=== PATIENT | male | born 1985 | race African-American/Black ===

== ENCOUNTER 2025-07-15 17:40 | Inpatient (IN) | payer MEDICAID, SELFPAY ==
[2025-07-15 19:32] LABS: #Basophils 0.03 10x3/uL (0.0-0.2); #Eosinophils 0.06 10x3/uL (0.0-0.7); #Monocytes 0.65 10x3/uL (0.11-0.59); #Neutrophils 4.28 10x3/uL (1.40-6.50); %Basophils 0.3 % (0.0-1.0); %Eosinophils 0.7 % (0.0-10.0); %Lymphocytes 45.2 % (21.0-51.0); %Monocytes 7.1 % (0.0-10.0); %Neutrophils 46.5 % (42.0-75.0); Hematocrit 40.1 % (42.0-52.0); Hemoglobin 12.7 g/dL (14.0-18.0); Mean Corpuscular Hemoglobin 28.0 pg (27.0-31.0); Mean Corpuscular Volume 88.3 fL (78.0-98.0); Platelet Count 244 10x3/uL (130-400); Red Blood Cell (RBC) Count 4.54 mill/uL (4.70-6.10); White Blood Cell (WBC) Count 9.19 10x3/uL (4.8-10.8)
[2025-07-15 19:51] LABS: ALT (SGPT) 45 U/L (Less than 45); AST (SGOT) 28 U/L (11-34); Albumin 4.2 g/dL (3.1-4.5); Alkaline Phosphatase 81 U/L (40-110); Anion Gap 15 mmol/L (10-20); BUN (Urea Nitrogen) 14 mg/dL (8.9-20.6); Bilirubin, Total 0.2 mg/dL (0.3-1.2); Calc. Creatinine Clearance 0 mL/min (70-130); Calcium 9.4 mg/dL (7.8-10.44); Carbon Dioxide 26 mmol/L (22-29); Chloride 106 mmol/L (98-107); Globulin 3.4 g/dL (2.4-3.5); Glucose 99 mg/dL (70-105); Potassium 3.9 mmol/L (3.5-5.1); Sodium 143 mmol/L (136-145)
[2025-07-15] MEDS ORDERED: Ondansetron PF 4 MG/2 ML Vial IVP PRN (23:46)
[2025-07-16] MEDS: Acetaminophen 325 MG TAB PO PRN (01:32)
[2025-07-16 03:33] VITALS: BMI 44.4
[2025-07-16 04:46] LABS: #Basophils 0.03 10x3/uL (0.0-0.2); #Eosinophils 0.10 10x3/uL (0.0-0.7); #Monocytes 0.78 10x3/uL (0.11-0.59); #Neutrophils 3.62 10x3/uL (1.40-6.50); %Basophils 0.3 % (0.0-1.0); %Eosinophils 1.1 % (0.0-10.0); %Lymphocytes 47.8 % (21.0-51.0); %Monocytes 8.9 % (0.0-10.0); %Neutrophils 41.6 % (42.0-75.0); Hematocrit 40.0 % (42.0-52.0); Hemoglobin 12.6 g/dL (14.0-18.0); Mean Corpuscular Hemoglobin 27.7 pg (27.0-31.0); Mean Corpuscular Volume 87.9 fL (78.0-98.0); Platelet Count 242 10x3/uL (130-400); Red Blood Cell (RBC) Count 4.55 mill/uL (4.70-6.10); White Blood Cell (WBC) Count 8.73 10x3/uL (4.8-10.8)
[2025-07-16 05:15] LABS: Anion Gap 13 mmol/L (10-20); BUN (Urea Nitrogen) 13 mg/dL (8.9-20.6); Calc. Creatinine Clearance 193 mL/min (70-130); Calcium 9.0 mg/dL (7.8-10.44); Carbon Dioxide 27 mmol/L (22-29); Chloride 105 mmol/L (98-107); Glucose 104 mg/dL (70-105); Potassium 3.5 mmol/L (3.5-5.1); Sodium 141 mmol/L (136-145)
[2025-07-16] MEDS ORDERED: Sodium Bicarbonate 2.5 MEQ/5 ML SDV ONE (07:50)
[2025-07-16 08:02] LABS: INR-International Normal Ratio 1.1; Prothrombin Time 14.0 sec (12.0-14.7)
[2025-07-16 08:03] LABS: PTT 33.2 sec (22.9-36.1)
[2025-07-16 08:09] LABS: D-Dimer Test 0.29 mcg/mL (0.27-0.43)
[2025-07-16 08:15] LABS: HIV (1/2) Antibody/Antigen NONREACTIVE (NonReactive); HIV 1/2 INDEX 0.07 S/CO (<1.00)
[2025-07-16] MEDS ORDERED: Lidocaine 1% PF 5 ML VIAL ONE (09:06)
[2025-07-16 10:07] LABS: Color Of CSF Supernatant COLORLESS (Colorless); Unspun CSF Color COLORLESS (Colorless)
[2025-07-16 10:29] LABS: CSF, Glucose 68 mg/dl (40-70); CSF, Protein 29.0 mg/dL (15-40)
[2025-07-16 10:55] LABS: CSF Source CSF
[2025-07-16] MEDS: PNEUMOC 20-VAL CONJ-DIP CRM/PF 0.5 ML SYRINGE IM ONE (11:19)
[2025-07-16] MEDS: cefTRIAXone\\ROCEPHIN 2 GM in Sodium Chloride 0.9% 100 ML IVPB SCH ×2 (11:38→23:31)
[2025-07-16] MEDS: Vancomycin (BATCH) 2.5 GM in Premix 1 BAG IVPB SCH (11:38)
[2025-07-16 14:15] LABS: ANA Symphony (Qualitative) Negative (Negative); ANA Symphony (Quantitative) 0.2 Ratio (< 0.7 Negative); EliA APS New Method **** NEW METHOD ****; dsDNA IgG Antibody 0.8 IU/mL (<10 Negative)
[2025-07-16] MEDS ORDERED: Vancomycin 1 GM in Premix 1 BAG IVPB SCH (21:00)
[2025-07-17] MEDS: VANCOMYCIN 1.75 GM/350 ML BAG 1.75 GM in Premix 1 BAG IVPB SCH (00:11)
[2025-07-17 04:21] LABS: Vancomycin, Random 38.6 ug/mL (See Comment)
[2025-07-17 04:29] LABS: Cardiac Risk 5.2 (Less than 4.5); Cholesterol 167.0 mg/dl (< 200 Desired); HDL Cholesterol 32.0 mg/dL (>60 Neg Risk); LDL Cholesterol, Calculated 116.0 mg/dL; Triglycerides 94.0 mg/dL (Less than 150)
[2025-07-17] MEDS: Pantoprazole 40 MG DR.TAB PO SCH (08:42)
[2025-07-17] MEDS: Vancomycin 1.25 GM / NS 250 ML VIAL-2-BAG IVPB SCH (11:43)
[2025-07-17] MEDS ORDERED: Vancomycin 1.5 GM / NS 500 ML VIAL-2-BAG IVPB SCH (12:00)
[2025-07-18 05:23] LABS: Vancomycin, Random 33.8 ug/mL (See Comment)
[2025-07-18 05:24] LABS: Calc. Creatinine Clearance 167.0 mL/min (70-130)
[2025-07-18] MEDS: cefTRIAXone (ROCEPHIN) 2 GM VIAL ONE (10:29)
[2025-07-18 11:13] LABS: CMV IgM AB Less than 30.0 AU/mL (0.0-29.9)
[2025-07-18] MEDS: Vancomycin 1 GM in Premix 1 BAG IVPB SCH (17:14)
[2025-07-18] MEDS: Senokot S 8.6-50 MG TAB PO SCH (21:26)
[2025-07-19 04:40] LABS: #Basophils 0.03 10x3/uL (0.0-0.2); #Eosinophils 0.12 10x3/uL (0.0-0.7); #Monocytes 0.81 10x3/uL (0.11-0.59); #Neutrophils 5.84 10x3/uL (1.40-6.50); %Basophils 0.3 % (0.0-1.0); %Eosinophils 1.2 % (0.0-10.0); %Lymphocytes 29.1 % (21.0-51.0); %Monocytes 8.4 % (0.0-10.0); %Neutrophils 60.6 % (42.0-75.0); Hematocrit 40.3 % (42.0-52.0); Hemoglobin 12.9 g/dL (14.0-18.0); Mean Corpuscular Hemoglobin 28.0 pg (27.0-31.0); Mean Corpuscular Volume 87.4 fL (78.0-98.0); Platelet Count 276 10x3/uL (130-400); Red Blood Cell (RBC) Count 4.61 mill/uL (4.70-6.10); White Blood Cell (WBC) Count 9.65 10x3/uL (4.8-10.8)
[2025-07-19 05:02] LABS: Anion Gap 16 mmol/L (10-20); BUN (Urea Nitrogen) 17 mg/dL (8.9-20.6); Calc. Creatinine Clearance 168 mL/min (70-130); Calcium 8.8 mg/dL (7.8-10.44); Carbon Dioxide 17 mmol/L (22-29); Chloride 111 mmol/L (98-107); Glucose 102 mg/dL (70-105); Potassium 3.7 mmol/L (3.5-5.1); Sodium 140 mmol/L (136-145)
[2025-07-20 04:41] LABS: Calc. Creatinine Clearance 171.0 mL/min (70-130)
[2025-07-20 04:44] LABS: Vancomycin, Random 15.5 ug/mL (See Comment)
[2025-07-20 16:38] VITALS: BP 117/80; TEMP 98.1
== END 2025-07-20 19:28 | disposition home or self-care (01) | DRG 103 ==
LOC: ERS 17:40 → 2SE 23:46 → OBSVTOIN 07-16 11:03
PROVIDERS: ADMIT Internal Medicine; ATTEND Student in an Organized Health Care Education/Training Program
PROC: 009U3ZX Drainage of Spinal Canal, Percutaneous Approach, Diagnostic (ICD-10-PCS; principal; 2025-07-16)
PROC: B01B1ZZ Fluoroscopy of Spinal Cord using Low Osmolar Contrast (ICD-10-PCS; 2025-07-16)
PROC: 3E03329 Introduction of Other Anti-infective into Peripheral Vein, Percutaneous Approach (ICD-10-PCS; 2025-07-16)
DX: G93.2 Benign intracranial hypertension (principal); Z68.41 Body mass index [BMI] 40.0-44.9, adult; G91.2 (Idiopathic) normal pressure hydrocephalus; H35.032 Hypertensive retinopathy, left eye; F17.210 Nicotine dependence, cigarettes, uncomplicated; H54.40 Blindness, one eye, unspecified eye; E66.01 Morbid (severe) obesity due to excess calories; Z71.6 Tobacco abuse counseling
CPT/HCPCS: 36415; 62270; 70543; 70553; 76376; 80048; 80053; 80061; 80202; 82565; 82945; 83090; 84157; 85025; 85300; 85303; 85306; 85307; 85598; 86038; 86147; 86225; 86645; 87040; 87070; 87205; 87252; 87389; 89051; 90471; 90677; 96374; G0009; J0696; J2060; J3373; J3375; J7050